=== PATIENT | male | born 1945 | race Caucasian/White ===

== ENCOUNTER 2019-03-28 06:29 | Inpatient (IN) | payer BC, MEDICAID ==
[~2019-03-28] VITALS: Ht 170.2 cm; Wt 59.0 kg
[2019-03-28] MEDS ORDERED: SODIUM CHLORIDE 0.9% 1,000 ML IV ONE (07:02)
[2019-03-28] MEDS ORDERED: KETOROLAC 30MG/ML VIAL IV STA (07:02)
[2019-03-28] MEDS ORDERED: MAGNESIUM/ALUMINUM HYDROXIDE/SIMETHICONE 30ML UDC PO STA (07:02)
[2019-03-28] MEDS ORDERED: ONDANSETRON HCL 4MG/2ML INJ IV STA (07:02)
[2019-03-28 07:59] LABS: CHLORIDE 103 mEq/L (98-107)
[2019-03-28 08:05] LABS: BASOPHILS % 0.4 % (0.0-2.0); HEMATOCRIT. 37.3 % (42.0-52.0); HEMOGLOBIN. 12.5 g/dL (14.0-18.0); LYMPHOCYTES % 10.4 % (20.0-50.0); MEAN CORPUSCULAR HEMOGLOBIN 31.1 pg (28.0-32.0); MEAN PLATELET VOLUME 8.9 fl (7.4-10.4); MONOCYTES % 9.3 % (2.0-8.0); NEUTROPHILS % 77.9 % (40.0-76.0); PLATELET 175 x1000/uL (130-400); RED BLOOD CELL COUNT 4.01 mill/uL (4.7-6.1); RED CELL DISTRIBUTION WIDTH 14.6 % (11.6-14.6)
[2019-03-28 08:06] LABS: PROTHROMBIN TIME 10.7 sec (9.6-11.0)
[2019-03-28] MEDS ORDERED: ALBUTEROL (0.083%) 2.5MG/3ML NEB HHN ONE (08:45)
[2019-03-28] MEDS ORDERED: METHYLPREDNISOLONE SOD SUCC 125 MG/2 ML VIAL IV ONE (08:45)
[2019-03-28] MEDS ORDERED: MAGNESIUM/ALUMINUM HYDROXIDE/SIMETHICONE 30ML UDC PO PRN (13:45)
[2019-03-28] MEDS ORDERED: ACETAMINOPHEN 325MG TABLET PO PRN (13:45)
[2019-03-28] MEDS ORDERED: GUAIFENESIN 200MG/10ML SUGAR FREE UDC PO PRN (13:45)
[2019-03-28] MEDS ORDERED: CLONIDINE 0.1MG TABLET PO PRN (13:45)
[2019-03-28] MEDS ORDERED: ONDANSETRON HCL 4MG/2ML INJ IV PRN (13:45)
[2019-03-28] MEDS ORDERED: DOCUSATE SODIUM 100MG CAPSULE PO PRN (13:45)
[2019-03-28] MEDS ORDERED: PANTOPRAZOLE 40MG DR TABLET PO NR (14:15)
[2019-03-28] MEDS ORDERED: ENOXAPARIN 40MG/0.4ML SYR SUBCUT NR (14:15)
[2019-03-28 15:35] LABS: BG CARBOXYHEMOGLOBIN 0.3 % (0.5-1.5); BG FRACTION INSPIRED OXYGEN 28; BG HCO3 ACT 26.1 mmol/L (22.0-26.0); BG METHEMOGLOBIN 0.2 % (0.0-1.5); BG OXYHEMOGLOBIN 94.5 % (94.0-97.0); BG PCO2 48.5 mmHg (35.0-45.0); BG PH 7.349 (7.350-7.450); BG PO2 79.1 mmHg (75.0-100.0); BG SAMPLE SITE RIGHT BRACHIAL; BG VENT MODE NASAL CANNULA
[2019-03-28 15:59] LABS: CREATINE KINASE 116 IU/L (39-308)
[2019-03-28 16:00] LABS: CREATINE KINASE MB FRACTION 1.3 ng/mL (0.5-3.6)
[2019-03-28] MEDS ORDERED: METHYLPREDNISOLONE SOD SUCC 125 MG/2 ML VIAL IV SCH (17:00)
[2019-03-28 17:07] LABS: CLARITY URINE CLEAR (CLEAR); COLOR URINE DARK YELLOW (YELLOW); KETONES URINE NEGATIVE (NEGATIVE); LEUKOCYTE ESTERASE URINE 1+ (NEGATIVE); NITRITE URINE NEGATIVE (NEGATIVE); OCCULT BLOOD URINE NEGATIVE (NEGATIVE); PH URINE 6.5 (4.5-8.0); PROTEIN URINE NEGATIVE (NEGATIVE)
[2019-03-28 17:46] LABS: *AMPHETAMINES SCREEN URINE NEGATIVE (NEGATIVE); *BARBITURATES SCREEN URINE PRESUMTIVE POSITIVE (NEGATIVE); *BENZODIAZEPINES SCREEN URINE NEGATIVE (NEGATIVE); *COCAINE SCREEN URINE NEGATIVE (NEGATIVE)
[2019-03-28 17:47] LABS: CANNABINOID URINE SCREEN NEGATIVE (NEGATIVE); METHADONE URINE SCREEN NEGATIVE (NEGATIVE); OPIATES URINE SCREEN NEGATIVE (NEGATIVE); PHENCYCLIDINE URINE SCREEN NEGATIVE (NEGATIVE)
[2019-03-28 20:00] VITALS: BP 127/54
[2019-03-28] MEDS ORDERED: IPRATROPIUM BROMIDE (0.02%) 0.5MG/2.5ML NEB HHN STA (20:14)
[2019-03-28] MEDS ORDERED: ALBUTEROL (0.083%) 2.5MG/3ML NEB HHN STA (20:14)
[2019-03-28 20:47] LABS: BG BASE EXCESS 1.8 mmol/L (-2.0-2.0); BG BILEVEL POS AIRWAY PRESSURE 15/5; BG CARBOXYHEMOGLOBIN 0.9 % (0.5-1.5); BG DEOXYHEMOGLOBIN 1.9 % (0.0-5.0); BG FRACTION INSPIRED OXYGEN 30; BG HCO3 ACT 27.7 mmol/L (22.0-26.0); BG METHEMOGLOBIN 0.3 % (0.0-1.5); BG OXYGEN SATURATION 98.1 % (92.0-98.5); BG OXYHEMOGLOBIN 96.9 % (94.0-97.0); BG PCO2 48.5 mmHg (35.0-45.0); BG PH 7.375 (7.350-7.450); BG PO2 110.4 mmHg (75.0-100.0); BG SAMPLE SITE RIGHT RADIAL; BG TOTAL HEMOGLOBIN 14.4 g/dL (12.0-18.0); BG VENT MODE MASK - BIPAP
[2019-03-28 21:30] VITALS: BP 127/54
[2019-03-28] MEDS ORDERED: PIPERACILLIN/TAZOBACTAM 3.375GM/50ML PREMIX IV SCH (22:00)
[2019-03-28] MEDS ORDERED: BUDESONIDE 0.5MG/2ML NEB HHN NR (22:00)
[2019-03-28] MEDS ORDERED: CARB200C4 MT (22:12)
[2019-03-28] MEDS ORDERED: ATOR20TA65 MT (22:12)
[2019-03-28] MEDS ORDERED: PRIM250T33 MT (22:12)
[2019-03-28] MEDS ORDERED: PRIMIDONE MT SCH (22:15)
[2019-03-28] MEDS ORDERED: CARBAMAZEPINE MT SCH (22:15)
[2019-03-28] MEDS ORDERED: DEXTROSE 50% WATER 50ML SYRINGE IV PRN (22:33)
[2019-03-28] MEDS: INSULIN LISPRO 100 UNITS/ML SUBCUT SCH (22:33)
[2019-03-28] MEDS: BLOOD SUGAR DIAGNOSTIC STRIP TEST SCH (22:47)
[2019-03-28] MEDS: ATORVASTATIN CALCIUM 20MG TABLET PO SCH (22:52)
[2019-03-28] MEDS: CARBAMAZEPINE 200MG TABLET PO SCH (23:27)
[2019-03-28] MEDS: PRIMIDONE 250 MG TABLET PO SCH (23:27)
[2019-03-28] MEDS: PIPERACILLIN/TAZ 3.375G PREMIX 50 ML IV SCH (23:35)
[2019-03-28 23:40] LABS: CREATINE KINASE 205 IU/L (39-308)
[2019-03-28 23:42] LABS: CREATINE KINASE MB FRACTION 2.6 ng/mL (0.5-3.6)
[2019-03-28] MEDS: BUDESONIDE 0.5MG/2ML NEB HHN SCH (23:48)
[2019-03-28] MEDS: IPRATROPIUM/ALBUTEROL 0.5-3(2.5)MG/3ML NEB INH PRN (23:49)
[2019-03-29] VITALS (9 sets, daily range): BP systolic 91–127; BP diastolic 40–62
[2019-03-29] MEDS: PIPERACILLIN/TAZ 3.375G PREMIX 50 ML IV SCH ×3 (05:35→21:06)
[2019-03-29] MEDS: BLOOD SUGAR DIAGNOSTIC STRIP TEST SCH ×4 (05:46→20:46)
[2019-03-29] MEDS: PANTOPRAZOLE 40MG DR TABLET PO SCH (05:48)
[2019-03-29] MEDS: IPRATROPIUM/ALBUTEROL 0.5-3(2.5)MG/3ML NEB INH PRN ×2 (05:57→14:01)
[2019-03-29] MEDS: INSULIN LISPRO 100 UNITS/ML SUBCUT SCH ×4 (06:16→20:53)
[2019-03-29 06:32] LABS: BASOPHILS % 0.2 % (0.0-2.0); EOSINOPHILS % 0.7 % (0.0-5.0); HEMATOCRIT. 35.6 % (42.0-52.0); HEMOGLOBIN. 12.2 g/dL (14.0-18.0); LYMPHOCYTES % 11.9 % (20.0-50.0); MEAN CORPUSCULAR HEMOGLOBIN 31.8 pg (28.0-32.0); MEAN CORPUSCULAR VOLUME 93.3 fL (80.0-94.0); MEAN PLATELET VOLUME 9.5 fl (7.4-10.4); MONOCYTES % 10.8 % (2.0-8.0); NEUTROPHILS % 76.4 % (40.0-76.0); PLATELET 181 x1000/uL (130-400); RED BLOOD CELL COUNT 3.82 mill/uL (4.7-6.1); RED CELL DISTRIBUTION WIDTH 14.8 % (11.6-14.6)
[2019-03-29 06:50] LABS: CHLORIDE 103 mEq/L (98-107)
[2019-03-29 06:58] LABS: CARBAMAZEPINE 6.5 ug/mL (4-12); LDL CHOLESTEROL 75 mg/dL (5-100)
[2019-03-29 06:59] LABS: HDL CHOLESTEROL 56 mg/dL (40-59)
[2019-03-29] MEDS: PRIMIDONE 250 MG TABLET PO SCH ×3 (09:03→16:48)
[2019-03-29] MEDS: CARBAMAZEPINE 200MG TABLET PO SCH ×2 (09:03→16:48)
[2019-03-29] MEDS: ENOXAPARIN 40MG/0.4ML SYR SUBCUT SCH (13:52)
[2019-03-29] MEDS: GUAIFENESIN 200MG/10ML SUGAR FREE UDC PO SCH ×2 (16:47→20:47)
[2019-03-29] MEDS: IPRATROPIUM/ALBUTEROL 0.5-3(2.5)MG/3ML NEB HHN SCH ×2 (17:38→20:43)
[2019-03-29] MEDS: BUDESONIDE 0.5MG/2ML NEB HHN SCH (20:43)
[2019-03-29] MEDS: ATORVASTATIN CALCIUM 20MG TABLET PO SCH (20:47)
[2019-03-30] VITALS: BP 104/51
[2019-03-30] MEDS: GUAIFENESIN 200MG/10ML SUGAR FREE UDC PO SCH ×4 (02:48→21:21)
[2019-03-30] MEDS: HYDROCODONE/ACETAMINOPHEN 5/325MG TABLET PO PRN (02:48)
[2019-03-30 04:00] VITALS: BP 116/51
[2019-03-30] MEDS: IPRATROPIUM/ALBUTEROL 0.5-3(2.5)MG/3ML NEB HHN SCH ×3 (04:12→16:10)
[2019-03-30] MEDS: PIPERACILLIN/TAZ 3.375G PREMIX 50 ML IV SCH ×3 (05:47→21:21)
[2019-03-30] MEDS: PANTOPRAZOLE 40MG DR TABLET PO SCH (05:47)
[2019-03-30] MEDS: BLOOD SUGAR DIAGNOSTIC STRIP TEST SCH ×4 (05:56→21:14)
[2019-03-30] MEDS: INSULIN LISPRO 100 UNITS/ML SUBCUT SCH ×4 (06:19→21:00)
[2019-03-30 06:35] LABS: BASOPHILS % 0.5 % (0.0-2.0); EOSINOPHILS % 4.1 % (0.0-5.0); HEMATOCRIT. 34.4 % (42.0-52.0); HEMOGLOBIN. 11.7 g/dL (14.0-18.0); LYMPHOCYTES % 17.1 % (20.0-50.0); MEAN CORPUSCULAR HEMOGLOBIN 31.7 pg (28.0-32.0); MEAN CORPUSCULAR VOLUME 93.3 fL (80.0-94.0); MEAN PLATELET VOLUME 9.1 fl (7.4-10.4); MONOCYTES % 12.9 % (2.0-8.0); NEUTROPHILS % 65.4 % (40.0-76.0); PLATELET 179 x1000/uL (130-400); RED BLOOD CELL COUNT 3.68 mill/uL (4.7-6.1)
[2019-03-30 07:25] LABS: CHLORIDE 101 mEq/L (98-107)
[2019-03-30 08:00] VITALS: BP 112/53
[2019-03-30] MEDS: PRIMIDONE 250 MG TABLET PO SCH ×3 (08:39→17:01)
[2019-03-30] MEDS: CARBAMAZEPINE 200MG TABLET PO SCH ×2 (08:39→17:01)
[2019-03-30] MEDS: IPRATROPIUM/ALBUTEROL 0.5-3(2.5)MG/3ML NEB INH PRN (08:56)
[2019-03-30] MEDS: BUDESONIDE 0.5MG/2ML NEB HHN SCH (08:56)
[2019-03-30 12:00] VITALS: BP 140/62
[2019-03-30] MEDS: ENOXAPARIN 40MG/0.4ML SYR SUBCUT SCH (14:02)
[2019-03-30 16:00] VITALS: BP 107/44
[2019-03-30 20:00] VITALS: BP 119/51
[2019-03-30] MEDS: ATORVASTATIN CALCIUM 20MG TABLET PO SCH (21:21)
[2019-03-31 01:04] VITALS: BP 112/56
[2019-03-31] MEDS: GUAIFENESIN 200MG/10ML SUGAR FREE UDC PO SCH ×4 (04:33→21:58)
[2019-03-31 04:36] VITALS: BP 124/56
[2019-03-31] MEDS: BLOOD SUGAR DIAGNOSTIC STRIP TEST SCH ×4 (06:04→21:54)
[2019-03-31] MEDS: PIPERACILLIN/TAZ 3.375G PREMIX 50 ML IV SCH ×3 (06:10→21:54)
[2019-03-31] MEDS: PANTOPRAZOLE 40MG DR TABLET PO SCH (06:10)
[2019-03-31 06:14] LABS: HEMATOCRIT. 33.9 % (42.0-52.0); HEMOGLOBIN. 11.5 g/dL (14.0-18.0); MEAN CORPUSCULAR HEMOGLOBIN 31.6 pg (28.0-32.0); MEAN PLATELET VOLUME 9.2 fl (7.4-10.4); PLATELET 187 x1000/uL (130-400); RED BLOOD CELL COUNT 3.64 mill/uL (4.7-6.1); RED CELL DISTRIBUTION WIDTH 14.7 % (11.6-14.6)
[2019-03-31 06:20] LABS: CHLORIDE 101 mEq/L (98-107)
[2019-03-31] MEDS: INSULIN LISPRO 100 UNITS/ML SUBCUT SCH ×4 (07:15→21:00)
[2019-03-31] MEDS: IPRATROPIUM/ALBUTEROL 0.5-3(2.5)MG/3ML NEB HHN SCH ×4 (07:50→20:27)
[2019-03-31 08:00] VITALS: BP 104/50
[2019-03-31] MEDS: PRIMIDONE 250 MG TABLET PO SCH ×3 (09:37→16:44)
[2019-03-31] MEDS: CARBAMAZEPINE 200MG TABLET PO SCH ×2 (09:37→16:44)
[2019-03-31 12:00] VITALS: BP 120/47
[2019-03-31] MEDS: ENOXAPARIN 40MG/0.4ML SYR SUBCUT SCH (14:41)
[2019-03-31 16:00] VITALS: BP 120/48
[2019-03-31 16:31] LABS: PLATELET ESTIMATE NORMAL
[2019-03-31 20:00] VITALS: BP 129/52
[2019-03-31] MEDS: BUDESONIDE 0.5MG/2ML NEB HHN SCH (20:26)
[2019-03-31] MEDS: ATORVASTATIN CALCIUM 20MG TABLET PO SCH (21:54)
[2019-04-01] VITALS: BP 121/49
[2019-04-01 04:00] VITALS: BP 116/57
[2019-04-01] MEDS: PIPERACILLIN/TAZ 3.375G PREMIX 50 ML IV SCH ×3 (05:22→21:08)
[2019-04-01] MEDS: BLOOD SUGAR DIAGNOSTIC STRIP TEST SCH ×4 (05:23→21:08)
[2019-04-01] MEDS: GUAIFENESIN 200MG/10ML SUGAR FREE UDC PO SCH ×4 (05:27→21:08)
[2019-04-01] MEDS: PANTOPRAZOLE 40MG DR TABLET PO SCH (05:27)
[2019-04-01] MEDS: INSULIN LISPRO 100 UNITS/ML SUBCUT SCH ×4 (05:50→21:00)
[2019-04-01 06:22] LABS: BASOPHILS % 0.6 % (0.0-2.0); EOSINOPHILS % 9.3 % (0.0-5.0); HEMATOCRIT. 34.9 % (42.0-52.0); HEMOGLOBIN. 11.8 g/dL (14.0-18.0); LYMPHOCYTES % 20.2 % (20.0-50.0); MEAN CORPUSCULAR HEMOGLOBIN 31.6 pg (28.0-32.0); MEAN CORPUSCULAR VOLUME 93.5 fL (80.0-94.0); MONOCYTES % 12.5 % (2.0-8.0); NEUTROPHILS % 57.4 % (40.0-76.0); PLATELET 205 x1000/uL (130-400); RED BLOOD CELL COUNT 3.73 mill/uL (4.7-6.1); RED CELL DISTRIBUTION WIDTH 14.4 % (11.6-14.6)
[2019-04-01 06:59] LABS: CHLORIDE 102 mEq/L (98-107)
[2019-04-01 08:00] VITALS: BP 131/65
[2019-04-01] MEDS: IPRATROPIUM/ALBUTEROL 0.5-3(2.5)MG/3ML NEB HHN SCH ×4 (08:58→21:55)
[2019-04-01] MEDS: BUDESONIDE 0.5MG/2ML NEB HHN SCH (08:58)
[2019-04-01] MEDS: PRIMIDONE 250 MG TABLET PO SCH ×3 (09:37→16:31)
[2019-04-01] MEDS: CARBAMAZEPINE 200MG TABLET PO SCH ×2 (09:38→16:31)
[2019-04-01] MEDS: HYDROCODONE/ACETAMINOPHEN 5/325MG TABLET PO PRN (09:44)
[2019-04-01 12:00] VITALS: BP 118/57
[2019-04-01] MEDS: ENOXAPARIN 40MG/0.4ML SYR SUBCUT SCH (13:04)
[2019-04-01] MEDS: SODIUM CHLORIDE 10% FOR INH 15ML VIAL NEB INH SCH (13:50)
[2019-04-01 15:06] LABS: HISTOPLASMA ABS QT DID Negative (Neg:<1:1)
[2019-04-01 16:00] VITALS: BP 115/52
[2019-04-01 20:00] VITALS: BP 121/57
[2019-04-01] MEDS: ATORVASTATIN CALCIUM 20MG TABLET PO SCH (21:08)
[2019-04-02] VITALS: BP 118/54
[2019-04-02] MEDS: GUAIFENESIN 200MG/10ML SUGAR FREE UDC PO SCH ×2 (03:30→08:45)
[2019-04-02 04:00] VITALS: BP 120/56
[2019-04-02 04:15] LABS: HIV SCREEN 4G Non Reactive (Non Reactive)
[2019-04-02 06:25] LABS: BASOPHILS % 0.9 % (0.0-2.0); EOSINOPHILS % 9.4 % (0.0-5.0); HEMOGLOBIN. 12.2 g/dL (14.0-18.0); LYMPHOCYTES % 22.3 % (20.0-50.0); MEAN CORPUSCULAR HEMOGLOBIN 31.5 pg (28.0-32.0); MEAN CORPUSCULAR VOLUME 93.3 fL (80.0-94.0); MEAN PLATELET VOLUME 8.4 fl (7.4-10.4); MONOCYTES % 12.3 % (2.0-8.0); NEUTROPHILS % 55.1 % (40.0-76.0); PLATELET 227 x1000/uL (130-400); RED BLOOD CELL COUNT 3.85 mill/uL (4.7-6.1); RED CELL DISTRIBUTION WIDTH 14.2 % (11.6-14.6)
[2019-04-02 06:42] LABS: CHLORIDE 104 mEq/L (98-107)
[2019-04-02] MEDS: PIPERACILLIN/TAZ 3.375G PREMIX 50 ML IV SCH ×3 (06:42→21:05)
[2019-04-02] MEDS: BLOOD SUGAR DIAGNOSTIC STRIP TEST SCH ×4 (06:42→21:12)
[2019-04-02] MEDS: PANTOPRAZOLE 40MG DR TABLET PO SCH (06:42)
[2019-04-02] MEDS: INSULIN LISPRO 100 UNITS/ML SUBCUT SCH ×4 (07:07→21:00)
[2019-04-02 08:00] VITALS: BP 154/80
[2019-04-02] MEDS: IPRATROPIUM/ALBUTEROL 0.5-3(2.5)MG/3ML NEB HHN SCH ×4 (08:09→21:57)
[2019-04-02] MEDS: CARBAMAZEPINE 200MG TABLET PO SCH ×2 (08:45→16:53)
[2019-04-02] MEDS: PRIMIDONE 250 MG TABLET PO SCH ×3 (08:45→16:53)
[2019-04-02] MEDS: SODIUM CHLORIDE 10% FOR INH 15ML VIAL NEB INH SCH (08:50)
[2019-04-02 12:00] VITALS: BP 121/59
[2019-04-02] MEDS: ENOXAPARIN 40MG/0.4ML SYR SUBCUT SCH (13:09)
[2019-04-02 13:16] LABS: QFT MITOGEN VALUE 1.81 IU/mL (.); QFT TB GOLD PLUS Positive (Negative); QFT TB1 AG VALUE 0.51 IU/mL (.)
[2019-04-02] MEDS ORDERED: SODIUM CHLORIDE 3% FOR INH 4ML UD NEB INH PRN (13:30)
[2019-04-02 16:00] VITALS: BP 123/59
[2019-04-02] MEDS: ACETYLCYSTEINE 100MG/ML 10% VIAL 4ML INH SCH (16:19)
[2019-04-02 20:00] VITALS: BP 109/59
[2019-04-02] MEDS: GUAIFENESIN 600MG ER TABLET PO SCH (21:05)
[2019-04-02] MEDS: ATORVASTATIN CALCIUM 20MG TABLET PO SCH (21:05)
[2019-04-03] VITALS: BP 105/60
[2019-04-03 04:00] VITALS: BP 106/64
[2019-04-03] MEDS: PANTOPRAZOLE 40MG DR TABLET PO SCH (05:57)
[2019-04-03] MEDS: PIPERACILLIN/TAZ 3.375G PREMIX 50 ML IV SCH ×3 (05:57→21:40)
[2019-04-03] MEDS: BLOOD SUGAR DIAGNOSTIC STRIP TEST SCH ×4 (06:01→20:40)
[2019-04-03 06:12] LABS: BASOPHILS % 0.7 % (0.0-2.0); HEMOGLOBIN. 12.2 g/dL (14.0-18.0); MEAN CORPUSCULAR HEMOGLOBIN 31.4 pg (28.0-32.0); MEAN CORPUSCULAR VOLUME 92.9 fL (80.0-94.0); MEAN PLATELET VOLUME 8.6 fl (7.4-10.4); MONOCYTES % 12.2 % (2.0-8.0); NEUTROPHILS % 57.1 % (40.0-76.0); PLATELET 246 x1000/uL (130-400); RED BLOOD CELL COUNT 3.88 mill/uL (4.7-6.1); RED CELL DISTRIBUTION WIDTH 14.1 % (11.6-14.6)
[2019-04-03 06:30] LABS: CHLORIDE 102 mEq/L (98-107)
[2019-04-03] MEDS: INSULIN LISPRO 100 UNITS/ML SUBCUT SCH ×4 (06:42→21:47)
[2019-04-03 08:00] VITALS: BP 122/60
[2019-04-03] MEDS: IPRATROPIUM/ALBUTEROL 0.5-3(2.5)MG/3ML NEB HHN SCH ×4 (08:01→20:59)
[2019-04-03] MEDS: ACETYLCYSTEINE 100MG/ML 10% VIAL 4ML INH SCH ×3 (08:01→21:00)
[2019-04-03] MEDS: CARBAMAZEPINE 200MG TABLET PO SCH ×2 (09:01→17:06)
[2019-04-03] MEDS: GUAIFENESIN 600MG ER TABLET PO SCH ×2 (09:01→20:35)
[2019-04-03] MEDS: PRIMIDONE 250 MG TABLET PO SCH ×3 (09:02→17:06)
[2019-04-03 12:00] VITALS: BP 127/56
[2019-04-03] MEDS: ENOXAPARIN 40MG/0.4ML SYR SUBCUT SCH (14:25)
[2019-04-03 16:00] VITALS: BP 120/61
[2019-04-03 20:00] VITALS: BP 120/60
[2019-04-03] MEDS: ATORVASTATIN CALCIUM 20MG TABLET PO SCH (20:35)
[2019-04-04] VITALS: BP 109/54
[2019-04-04 06:00] VITALS: BP 97/58
[2019-04-04] MEDS: PANTOPRAZOLE 40MG DR TABLET PO SCH (06:15)
[2019-04-04] MEDS: PIPERACILLIN/TAZ 3.375G PREMIX 50 ML IV SCH ×3 (06:15→21:11)
[2019-04-04] MEDS: BLOOD SUGAR DIAGNOSTIC STRIP TEST SCH ×4 (06:15→21:00)
[2019-04-04] MEDS: INSULIN LISPRO 100 UNITS/ML SUBCUT SCH ×4 (06:17→21:00)
[2019-04-04 06:44] LABS: CHLORIDE 102 mEq/L (98-107)
[2019-04-04 06:57] LABS: BASOPHILS % 0.9 % (0.0-2.0); EOSINOPHILS % 7.4 % (0.0-5.0); HEMATOCRIT. 36.3 % (42.0-52.0); HEMOGLOBIN. 12.3 g/dL (14.0-18.0); LYMPHOCYTES % 25.3 % (20.0-50.0); MEAN CORPUSCULAR HEMOGLOBIN 31.2 pg (28.0-32.0); MEAN CORPUSCULAR VOLUME 92.1 fL (80.0-94.0); MEAN PLATELET VOLUME 8.6 fl (7.4-10.4); MONOCYTES % 11.6 % (2.0-8.0); NEUTROPHILS % 54.8 % (40.0-76.0); PLATELET 262 x1000/uL (130-400); RED BLOOD CELL COUNT 3.94 mill/uL (4.7-6.1); RED CELL DISTRIBUTION WIDTH 14.3 % (11.6-14.6)
[2019-04-04 08:00] VITALS: BP 114/58
[2019-04-04] MEDS: CARBAMAZEPINE 200MG TABLET PO SCH ×2 (09:05→17:03)
[2019-04-04] MEDS: PRIMIDONE 250 MG TABLET PO SCH ×3 (09:05→17:03)
[2019-04-04] MEDS: GUAIFENESIN 600MG ER TABLET PO SCH ×2 (09:05→21:11)
[2019-04-04] MEDS: IPRATROPIUM/ALBUTEROL 0.5-3(2.5)MG/3ML NEB HHN SCH ×4 (09:13→20:36)
[2019-04-04] MEDS: ACETYLCYSTEINE 100MG/ML 10% VIAL 4ML INH SCH ×2 (09:13→14:51)
[2019-04-04 12:00] VITALS: BP 101/59
[2019-04-04] MEDS: ENOXAPARIN 40MG/0.4ML SYR SUBCUT SCH (13:29)
[2019-04-04 16:00] VITALS: BP 105/60
[2019-04-04 20:00] VITALS: BP 114/55
[2019-04-04] MEDS: ATORVASTATIN CALCIUM 20MG TABLET PO SCH (21:11)
[2019-04-05] VITALS: BP 107/51
[2019-04-05] MEDS: IPRATROPIUM/ALBUTEROL 0.5-3(2.5)MG/3ML NEB INH PRN (00:30)
[2019-04-05] MEDS: ACETYLCYSTEINE 100MG/ML 10% VIAL 4ML INH SCH ×3 (00:30→15:52)
[2019-04-05 04:00] VITALS: BP 113/50
[2019-04-05] MEDS: PANTOPRAZOLE 40MG DR TABLET PO SCH (06:21)
[2019-04-05] MEDS: BLOOD SUGAR DIAGNOSTIC STRIP TEST SCH ×4 (06:27→20:57)
[2019-04-05] MEDS: INSULIN LISPRO 100 UNITS/ML SUBCUT SCH ×4 (06:27→21:00)
[2019-04-05] MEDS: IPRATROPIUM/ALBUTEROL 0.5-3(2.5)MG/3ML NEB HHN SCH ×3 (07:59→15:52)
[2019-04-05 08:00] VITALS: BP 118/60
[2019-04-05] MEDS: PRIMIDONE 250 MG TABLET PO SCH ×3 (08:52→16:47)
[2019-04-05] MEDS: CARBAMAZEPINE 200MG TABLET PO SCH ×2 (08:52→16:47)
[2019-04-05] MEDS: GUAIFENESIN 600MG ER TABLET PO SCH ×2 (08:52→20:57)
[2019-04-05 12:00] VITALS: BP 116/71
[2019-04-05] MEDS: ENOXAPARIN 40MG/0.4ML SYR SUBCUT SCH (13:29)
[2019-04-05 16:00] VITALS: BP 121/63
[2019-04-05 20:00] VITALS: BP 112/54
[2019-04-05] MEDS: ATORVASTATIN CALCIUM 20MG TABLET PO SCH (21:07)
[2019-04-06] VITALS: BP 110/61
[2019-04-06 04:00] VITALS: BP 108/57
[2019-04-06] MEDS: BLOOD SUGAR DIAGNOSTIC STRIP TEST SCH ×4 (05:55→20:41)
[2019-04-06] MEDS: PANTOPRAZOLE 40MG DR TABLET PO SCH (05:55)
[2019-04-06] MEDS: INSULIN LISPRO 100 UNITS/ML SUBCUT SCH ×4 (06:41→20:41)
[2019-04-06 07:19] LABS: CHLORIDE 104 mEq/L (98-107)
[2019-04-06 07:53] LABS: EOSINOPHILS % 5.7 % (0.0-5.0); HEMATOCRIT. 37.1 % (42.0-52.0); HEMOGLOBIN. 12.2 g/dL (14.0-18.0); LYMPHOCYTES % 24.7 % (20.0-50.0); MEAN CORPUSCULAR HEMOGLOBIN 30.9 pg (28.0-32.0); MEAN CORPUSCULAR VOLUME 93.9 fL (80.0-94.0); NEUTROPHILS % 58.6 % (40.0-76.0); PLATELET 274 x1000/uL (130-400); RED BLOOD CELL COUNT 3.95 mill/uL (4.7-6.1); RED CELL DISTRIBUTION WIDTH 14.2 % (11.6-14.6)
[2019-04-06 08:00] VITALS: BP 130/64
[2019-04-06] MEDS: IPRATROPIUM/ALBUTEROL 0.5-3(2.5)MG/3ML NEB HHN SCH ×4 (09:02→20:55)
[2019-04-06] MEDS: ACETYLCYSTEINE 100MG/ML 10% VIAL 4ML INH SCH ×2 (09:02→20:55)
[2019-04-06] MEDS: CARBAMAZEPINE 200MG TABLET PO SCH ×2 (09:06→16:53)
[2019-04-06] MEDS: PRIMIDONE 250 MG TABLET PO SCH ×3 (09:06→16:53)
[2019-04-06] MEDS: GUAIFENESIN 600MG ER TABLET PO SCH ×2 (09:06→20:48)
[2019-04-06 12:00] VITALS: BP 103/58
[2019-04-06] MEDS ORDERED: ACETYLCYSTEINE 100MG/ML 10% VIAL 4ML INH ONE (15:00)
[2019-04-06] MEDS ORDERED: SODIUM CHLORIDE 3% FOR INH 15ML VIAL NEB INH NR (15:00)
[2019-04-06] MEDS: ENOXAPARIN 40MG/0.4ML SYR SUBCUT SCH (15:04)
[2019-04-06] MEDS ORDERED: SODIUM CHLORIDE 3% FOR INH 4ML UD NEB INH NR (15:29)
[2019-04-06] MEDS ORDERED: ACETYLCYSTEINE 100MG/ML 10% VIAL 4ML INH NR (15:45)
[2019-04-06 16:00] VITALS: BP 103/50
[2019-04-06 20:00] VITALS: BP 117/57
[2019-04-06] MEDS: ATORVASTATIN CALCIUM 20MG TABLET PO SCH (20:48)
[2019-04-07] VITALS: BP_SYST 122; BP_SYST 124; BP_DIAS 57
[2019-04-07 04:00] VITALS: BP 115/61
[2019-04-07] MEDS: PANTOPRAZOLE 40MG DR TABLET PO SCH (06:16)
[2019-04-07] MEDS: BLOOD SUGAR DIAGNOSTIC STRIP TEST SCH ×2 (06:16→11:39)
[2019-04-07 06:56] LABS: CHLORIDE 103 mEq/L (98-107)
[2019-04-07] MEDS: INSULIN LISPRO 100 UNITS/ML SUBCUT SCH ×2 (07:15→11:39)
[2019-04-07 07:20] LABS: BASOPHILS % 0.8 % (0.0-2.0); EOSINOPHILS % 5.9 % (0.0-5.0); HEMATOCRIT. 35.4 % (42.0-52.0); HEMOGLOBIN. 11.9 g/dL (14.0-18.0); LYMPHOCYTES % 26.5 % (20.0-50.0); MEAN CORPUSCULAR HEMOGLOBIN 31.3 pg (28.0-32.0); MEAN CORPUSCULAR VOLUME 93.1 fL (80.0-94.0); MEAN PLATELET VOLUME 9.1 fl (7.4-10.4); MONOCYTES % 10.7 % (2.0-8.0); NEUTROPHILS % 56.1 % (40.0-76.0); PLATELET 291 x1000/uL (130-400)
[2019-04-07 08:00] VITALS: BP 127/54
[2019-04-07] MEDS: GUAIFENESIN 600MG ER TABLET PO SCH (08:50)
[2019-04-07] MEDS: PRIMIDONE 250 MG TABLET PO SCH ×2 (08:50→13:08)
[2019-04-07] MEDS: CARBAMAZEPINE 200MG TABLET PO SCH (08:50)
[2019-04-07] MEDS: ACETYLCYSTEINE 100MG/ML 10% VIAL 4ML INH SCH (09:31)
[2019-04-07] MEDS: IPRATROPIUM/ALBUTEROL 0.5-3(2.5)MG/3ML NEB HHN SCH ×2 (09:32→12:40)
[2019-04-07 12:00] VITALS: BP 132/51
[2019-04-07] MEDS: ENOXAPARIN 40MG/0.4ML SYR SUBCUT SCH (13:08)
[2019-04-07 14:33] VITALS: BP 132/51
== END 2019-04-07 15:40 | disposition home or self-care (01) | DRG 133 ==
LOC: EDBD 06:29 → ER 06:29 → 5WST 10:27 → EDBEDREQ 10:30 → EDBEDREQTM 10:30 → ENRESERV 18:50 → 5WST 03-30 12:04
PROVIDERS: ADMIT Internal Medicine; ATTEND Internal Medicine
PROC: 5A09357 Assistance with Respiratory Ventilation, Less than 24 Consecutive Hours, Continuous Positive Airway Pressure (ICD-10-PCS; principal; 2019-03-28)
DX: J96.21 Acute and chronic respiratory failure with hypoxia (principal); J18.1 Lobar pneumonia, unspecified organism; E44.0 Moderate protein-calorie malnutrition; E87.2 Acidosis; D64.9 Anemia, unspecified; E83.42 Hypomagnesemia; Z99.81 Dependence on supplemental oxygen; E11.9 Type 2 diabetes mellitus without complications; R76.11 Nonspecific reaction to tuberculin skin test without active tuberculosis; J43.9 Emphysema, unspecified; G40.909 Epilepsy, unspecified, not intractable, without status epilepticus; J20.9 Acute bronchitis, unspecified; E78.5 Hyperlipidemia, unspecified; K21.9 Gastro-esophageal reflux disease without esophagitis; M47.897 Other spondylosis, lumbosacral region; M43.17 Spondylolisthesis, lumbosacral region; Z87.891 Personal history of nicotine dependence; Z79.899 Other long term (current) drug therapy
CPT/HCPCS: 36415; 36600; 71045; 71250; 74176; 80048; 80061; 80156; 80305; 82375; 82550; 82553; 82805; 82962; 83735; 84443; 84484; 86480; 86698; 87070; 87106; 87116; 87389; 93005; 93970; 94618; 94640; 99291; J1650; J1815; J1885; J2405; J2543; J2930; J7030; J7040; J7050; J7131; J7608; J7611; J7620; J7626